=== PATIENT | female | born 1975 | race Caucasian/White ===

== ENCOUNTER 2016-11-17 09:00 | Day surgery (SDC) | payer OTHER ==
[2016-11-17] MEDS ORDERED: IRON SUCROSE INJECTION 200 MG in SODIUM CHLORIDE 100 ML IVPB ONE (09:30)
[2016-11-17 09:58] VITALS: BP 111/71; PULSE 65; TEMP 98.1; BMI 25.5
[2016-11-17 11:22] LABS: MCH 22.2 pg (25.7-33.7); MCHC 31.6 g/dl (32.0-36.0); MEAN CELL VOLUME 70.1 fl (80-96); MEAN PLT VOLUME 10.6 fl (7.5-11.1); PLATELET COUNT 265 K/MM3 (134-434); WHITE BLOOD COUNT 6.5 K/mm3 (4.0-10.0)
== END 2016-11-17 11:30 | disposition home or self-care (01) ==
LOC: FINFUSION 09:00 → FM/S 09:04 → FINFUSION 11:30
PROVIDERS: ATTEND Internal Medicine Hematology & Oncology
PROC: 3E033GC Introduction of Other Therapeutic Substance into Peripheral Vein, Percutaneous Approach (ICD-10-PCS; principal; 2016-11-17)
DX: D64.9 Anemia, unspecified (principal)
CPT/HCPCS: 36415; 85027; 96365; J1756

== ENCOUNTER 2016-11-24 08:36 | Day surgery (SDC) | payer OTHER ==
[2016-11-24] MEDS ORDERED: IRON SUCROSE INJECTION 200 MG in SODIUM CHLORIDE 100 ML IVPB ONE (09:15)
[2016-11-24 18:51] VITALS: BP 130/75; PULSE 84
== END 2016-11-24 11:30 | disposition home or self-care (01) ==
LOC: FINFUSION 08:36 → FM/S 08:39 → FINFUSION 11:30
PROVIDERS: ATTEND Internal Medicine Hematology & Oncology
PROC: 3E033GC Introduction of Other Therapeutic Substance into Peripheral Vein, Percutaneous Approach (ICD-10-PCS; principal; 2016-11-24)
DX: D50.9 Iron deficiency anemia, unspecified (principal)
CPT/HCPCS: 96365; J1756

== ENCOUNTER 2016-12-01 08:03 | Day surgery (SDC) | payer OTHER ==
[2016-12-01] MEDS ORDERED: IRON SUCROSE INJECTION 200 MG in SODIUM CHLORIDE 100 ML IVPB ONE (08:45)
[2016-12-01 10:29] VITALS: BP 92/69; PULSE 66; TEMP 98
== END 2016-12-01 11:00 | disposition home or self-care (01) ==
LOC: FINFUSION 08:03 → FM/S 08:08 → FINFUSION 11:00
PROVIDERS: ATTEND Internal Medicine Hematology & Oncology
PROC: 3E033GC Introduction of Other Therapeutic Substance into Peripheral Vein, Percutaneous Approach (ICD-10-PCS; principal; 2016-12-01)
DX: D64.9 Anemia, unspecified (principal)
CPT/HCPCS: 96365

== ENCOUNTER 2016-12-08 11:11 | Day surgery (SDC) | payer OTHER ==
[2016-12-08] MEDS ORDERED: IRON SUCROSE INJECTION 200 MG in SODIUM CHLORIDE 100 ML IVPB ONE (11:30)
[2016-12-08 11:45] VITALS: TEMP 98.1; BMI 25.7
[2016-12-08 12:07] VITALS: BP 120/62; PULSE 76
== END 2016-12-08 12:08 | disposition home or self-care (01) ==
LOC: FINFUSION 11:11 → FM/S 11:14 → FINFUSION 12:08
PROVIDERS: ATTEND Internal Medicine Hematology & Oncology
PROC: 3E033GC Introduction of Other Therapeutic Substance into Peripheral Vein, Percutaneous Approach (ICD-10-PCS; principal; 2016-12-08)
DX: D64.9 Anemia, unspecified (principal)
CPT/HCPCS: 96365; J1756

== ENCOUNTER 2017-05-18 08:21 | Day surgery (SDC) | payer OTHER ==
[2017-05-18] MEDS ORDERED: IRON SUCROSE INJECTION 200 MG in SODIUM CHLORIDE 100 ML IVPB ONE (08:45)
[2017-05-18 10:16] VITALS: BP 123/70; PULSE 73; TEMP 99.3
== END 2017-05-18 10:10 | disposition home or self-care (01) ==
LOC: FINFUSION 08:21 → FM/S 08:23 → FINFUSION 10:10
PROVIDERS: ATTEND Internal Medicine Hematology & Oncology
PROC: 3E033GC Introduction of Other Therapeutic Substance into Peripheral Vein, Percutaneous Approach (ICD-10-PCS; principal; 2017-05-18)
DX: D50.9 Iron deficiency anemia, unspecified (principal)
CPT/HCPCS: 96365; J1756

== ENCOUNTER 2017-05-25 08:16 | Day surgery (SDC) | payer OTHER ==
[2017-05-25] MEDS ORDERED: IRON SUCROSE INJECTION 200 MG in SODIUM CHLORIDE 100 ML IVPB ONE (08:45)
[2017-05-25 10:11] VITALS: BP 102/64; PULSE 68; TEMP 98.6
== END 2017-05-25 10:11 | disposition home or self-care (01) ==
LOC: FINFUSION 08:16 → FM/S 08:17 → FINFUSION 10:11
PROVIDERS: ATTEND Internal Medicine Hematology & Oncology
PROC: 3E033GC Introduction of Other Therapeutic Substance into Peripheral Vein, Percutaneous Approach (ICD-10-PCS; principal; 2017-05-25)
DX: D50.9 Iron deficiency anemia, unspecified (principal)
CPT/HCPCS: 96365; J1756

== ENCOUNTER 2017-06-08 08:55 | Day surgery (SDC) | payer OTHER ==
[2017-06-08] MEDS ORDERED: IRON SUCROSE INJECTION 200 MG in SODIUM CHLORIDE 100 ML IVPB ONE (09:15)
[2017-06-08 10:47] VITALS: BP 108/74; PULSE 65; TEMP 98
== END 2017-06-08 10:47 | disposition home or self-care (01) ==
LOC: FASU 08:55 → FINFUSION 08:55 → FM/S 08:55 → FASU 10:47
PROVIDERS: ATTEND Internal Medicine Hematology & Oncology
PROC: 3E033GC Introduction of Other Therapeutic Substance into Peripheral Vein, Percutaneous Approach (ICD-10-PCS; principal; 2017-06-08)
DX: D50.9 Iron deficiency anemia, unspecified (principal)
CPT/HCPCS: 96360; 96365; J1756

== ENCOUNTER 2017-06-15 08:37 | Day surgery (SDC) | payer OTHER ==
[2017-06-15] MEDS ORDERED: IRON SUCROSE INJECTION 200 MG in SODIUM CHLORIDE 100 ML IVPB ONE (09:00)
[2017-06-15 10:33] VITALS: BP 110/65; PULSE 65; TEMP 98.4
== END 2017-06-15 10:00 | disposition home or self-care (01) ==
LOC: FINFUSION 08:37 → FM/S 08:41 → FINFUSION 10:00
PROVIDERS: ATTEND Internal Medicine Hematology & Oncology
PROC: 3E033GC Introduction of Other Therapeutic Substance into Peripheral Vein, Percutaneous Approach (ICD-10-PCS; principal; 2017-06-15)
DX: D50.9 Iron deficiency anemia, unspecified (principal)
CPT/HCPCS: 96365; J1756

== ENCOUNTER 2017-06-22 08:24 | Day surgery (SDC) | payer OTHER ==
[2017-06-22] MEDS ORDERED: IRON SUCROSE INJECTION 200 MG in SODIUM CHLORIDE 100 ML IVPB ONE (09:00)
[2017-06-22 09:08] VITALS: TEMP 97.8
[2017-06-22 09:39] LABS: MCH 26.6 pg (25.7-33.7); MCHC 32.6 g/dl (32.0-36.0); MEAN CELL VOLUME 81.6 fl (80-96); MEAN PLT VOLUME 9.8 fl (7.5-11.1); PLATELET COUNT 204 K/MM3 (134-434); RDW 16.2 % (11.6-15.6); WHITE BLOOD COUNT 7.6 K/mm3 (4.0-10.8)
[2017-06-22 09:52] LABS: ALBUMIN 4.3 g/dl (3.5-5.0); ALK PHOS 39 U/L (32-92); ANION GAP 9 (8-16); BILIRUBIN,TOTAL 0.6 mg/dl (0.2-1.0); CALCIUM 9.1 mg/dl (8.4-10.2); CO2 21 mmol/L (22-28); CREATININE 0.6 mg/dl (0.6-1.3); GLUCOSE,RANDOM 86 mg/dl (74-106); SGOT/AST 15 U/L (10-42); SGPT/ALT 12 U/L (10-40); TOT PROT 6.7 g/dl (6.4-8.3)
[2017-06-22 09:58] VITALS: BP 106/58; PULSE 68
[2017-06-22 10:13] LABS: BILIRUBIN,DIRECT 0.2 mg/dl (0.0-0.2)
== END 2017-06-22 10:10 | disposition home or self-care (01) ==
LOC: FINFUSION 08:24 → FM/S 08:26 → FINFUSION 10:10
PROVIDERS: ATTEND Internal Medicine Hematology & Oncology
PROC: 3E033GC Introduction of Other Therapeutic Substance into Peripheral Vein, Percutaneous Approach (ICD-10-PCS; principal; 2017-06-22)
DX: D50.9 Iron deficiency anemia, unspecified (principal)
CPT/HCPCS: 36415; 80048; 80076; 82728; 85027; 96365; J1756

== ENCOUNTER 2017-11-02 08:37 | Day surgery (SDC) | payer OTHER ==
[2017-11-02] MEDS ORDERED: IRON SUCROSE INJECTION 200 MG in SODIUM CHLORIDE 100 ML IVPB ONE (09:00)
[2017-11-02 09:04] VITALS: BP 120/59; PULSE 71; TEMP 98.8; BMI 24.7
[2017-11-02] MEDS ORDERED: CYANOCOBALAMIN (VITAMIN B-12) 1000 MCG/1 ML VIAL IM SCH (09:30)
== END 2017-11-02 11:30 | disposition home or self-care (01) ==
LOC: FINFUSION 08:37 → FM/S 08:44 → FINFUSION 11:30
PROVIDERS: ATTEND Internal Medicine Hematology & Oncology
PROC: 3E033GC Introduction of Other Therapeutic Substance into Peripheral Vein, Percutaneous Approach (ICD-10-PCS; principal; 2017-11-02)
DX: D50.9 Iron deficiency anemia, unspecified (principal)
CPT/HCPCS: 96365; J1756

== ENCOUNTER 2017-12-21 08:29 | Day surgery (SDC) | payer OTHER ==
[2017-12-21] MEDS ORDERED: IRON SUCROSE INJECTION 200 MG in SODIUM CHLORIDE 100 ML IVPB ONE (08:45)
[2017-12-21] MEDS ORDERED: CYANOCOBALAMIN (VITAMIN B-12) 1000 MCG/1 ML VIAL IM SCH (09:00)
[2017-12-21 09:19] VITALS: TEMP 97.9
[2017-12-21 09:53] VITALS: BP 108/58; PULSE 61
== END 2017-12-21 09:59 | disposition home or self-care (01) ==
LOC: FINFUSION 08:29 → FM/S 08:32 → FINFUSION 09:59
PROVIDERS: ATTEND Internal Medicine Hematology & Oncology
PROC: 3E033GC Introduction of Other Therapeutic Substance into Peripheral Vein, Percutaneous Approach (ICD-10-PCS; principal; 2017-12-21)
PROC: 3E023GC Introduction of Other Therapeutic Substance into Muscle, Percutaneous Approach (ICD-10-PCS; 2017-12-21)
DX: D50.9 Iron deficiency anemia, unspecified (principal)
CPT/HCPCS: 96365; 96372; J1756

== ENCOUNTER 2017-12-28 08:23 | Day surgery (SDC) | payer OTHER ==
[2017-12-28] MEDS ORDERED: IRON SUCROSE INJECTION 200 MG in SODIUM CHLORIDE 100 ML IVPB ONE (09:15)
[2017-12-28 09:38] VITALS: BP 96/48; PULSE 63; TEMP 98.4
[2017-12-28] MEDS ORDERED: CYANOCOBALAMIN (VITAMIN B-12) 1000 MCG/1 ML VIAL IM SCH (10:00)
== END 2017-12-28 11:25 | disposition home or self-care (01) ==
LOC: FINFUSION 08:23 → FM/S 08:43 → FINFUSION 11:25
PROVIDERS: ATTEND Internal Medicine Hematology & Oncology
PROC: 3E033GC Introduction of Other Therapeutic Substance into Peripheral Vein, Percutaneous Approach (ICD-10-PCS; principal; 2017-12-28)
PROC: 3E013GC Introduction of Other Therapeutic Substance into Subcutaneous Tissue, Percutaneous Approach (ICD-10-PCS; 2017-12-28)
DX: D64.9 Anemia, unspecified (principal)
CPT/HCPCS: 96365; 96372; J1756

== ENCOUNTER 2018-01-04 10:09 | Day surgery (SDC) | payer OTHER ==
[2018-01-04] MEDS ORDERED: IRON SUCROSE INJECTION 200 MG in SODIUM CHLORIDE 100 ML IVPB ONE (10:30)
[2018-01-04] MEDS ORDERED: CYANOCOBALAMIN (VITAMIN B-12) 1000 MCG/1 ML VIAL IM SCH (10:45)
[2018-01-04 12:09] VITALS: BP 110/72; PULSE 62; TEMP 98.5
== END 2018-01-04 11:30 | disposition home or self-care (01) ==
LOC: FINFUSION 10:09 → FM/S 10:13 → FINFUSION 11:30
PROVIDERS: ATTEND Internal Medicine Hematology & Oncology
PROC: 3E033GC Introduction of Other Therapeutic Substance into Peripheral Vein, Percutaneous Approach (ICD-10-PCS; principal; 2018-01-04)
PROC: 3E023GC Introduction of Other Therapeutic Substance into Muscle, Percutaneous Approach (ICD-10-PCS; 2018-01-04)
DX: D50.9 Iron deficiency anemia, unspecified (principal)
CPT/HCPCS: 96365; 96372; J1756

== ENCOUNTER 2018-01-11 08:43 | Day surgery (SDC) | payer OTHER ==
[2018-01-11] MEDS ORDERED: IRON SUCROSE INJECTION 200 MG in SODIUM CHLORIDE 100 ML IVPB ONE (09:00)
[2018-01-11] MEDS ORDERED: CYANOCOBALAMIN (VITAMIN B-12) 1000 MCG/1 ML VIAL IM SCH (09:15)
[2018-01-11 09:25] VITALS: BP 106/68; PULSE 68; TEMP 98.5
== END 2018-01-11 10:00 | disposition home or self-care (01) ==
LOC: FINFUSION 08:43 → FM/S 08:46 → FINFUSION 10:00
PROVIDERS: ATTEND Internal Medicine Hematology & Oncology
PROC: 3E033GC Introduction of Other Therapeutic Substance into Peripheral Vein, Percutaneous Approach (ICD-10-PCS; principal; 2018-01-11)
PROC: 3E013GC Introduction of Other Therapeutic Substance into Subcutaneous Tissue, Percutaneous Approach (ICD-10-PCS; 2018-01-11)
DX: D50.9 Iron deficiency anemia, unspecified (principal)
CPT/HCPCS: 96365; 96372; J1756

== ENCOUNTER 2018-01-18 08:57 | Day surgery (SDC) | payer OTHER ==
[2018-01-18] MEDS ORDERED: IRON SUCROSE INJECTION 200 MG in SODIUM CHLORIDE 100 ML IVPB ONE (09:15)
[2018-01-18] MEDS ORDERED: CYANOCOBALAMIN (VITAMIN B-12) 1000 MCG/1 ML VIAL IM SCH (09:30)
[2018-01-18 09:33] VITALS: TEMP 98.5
[2018-01-18 10:14] VITALS: BP 122/74; PULSE 64
== END 2018-01-18 10:10 | disposition home or self-care (01) ==
LOC: FINFUSION 08:57 → FM/S 09:00 → FINFUSION 10:10
PROVIDERS: ATTEND Internal Medicine Hematology & Oncology
PROC: 3E033GC Introduction of Other Therapeutic Substance into Peripheral Vein, Percutaneous Approach (ICD-10-PCS; principal; 2018-01-18)
PROC: 3E023GC Introduction of Other Therapeutic Substance into Muscle, Percutaneous Approach (ICD-10-PCS; 2018-01-18)
DX: D50.9 Iron deficiency anemia, unspecified (principal)
CPT/HCPCS: 96365; 96372; J1756

== ENCOUNTER 2018-02-08 09:17 | Day surgery (SDC) | payer OTHER ==
[2018-02-08 09:40] VITALS: TEMP 98.7; BMI 24.9
[2018-02-08] MEDS ORDERED: IRON SUCROSE INJECTION 200 MG in SODIUM CHLORIDE 100 ML IVPB ONE (09:45)
[2018-02-08 10:53] VITALS: BP 109/74; PULSE 58
== END 2018-02-08 10:52 | disposition home or self-care (01) ==
LOC: FINFUSION 09:17 → FM/S 09:23 → FINFUSION 10:52
PROVIDERS: ATTEND Internal Medicine Hematology & Oncology
PROC: 3E033GC Introduction of Other Therapeutic Substance into Peripheral Vein, Percutaneous Approach (ICD-10-PCS; principal; 2018-02-08)
DX: D50.9 Iron deficiency anemia, unspecified (principal)
CPT/HCPCS: 96365; J1756

== ENCOUNTER 2019-01-31 09:08 | Day surgery (SDC) | payer OTHER | END 2019-01-31 11:00 | disposition home or self-care (01) | LOC: FINFUSION 09:08 → FM/S 09:10 → FINFUSION 11:00 | DX: D50.9 Iron deficiency anemia, unspecified (principal) ==

== ENCOUNTER 2019-02-07 09:28 | Day surgery (SDC) | payer OTHER ==
[2019-02-07] MEDS ORDERED: IRON SUCROSE INJECTION 200 MG in SODIUM CHLORIDE 100 ML IVPB ONE (10:15)
[2019-02-07 10:19] VITALS: BP 100/57; PULSE 62; TEMP 98.9
[2019-02-07 12:13] VITALS: BMI 26.7
== END 2019-02-07 11:45 | disposition home or self-care (01) ==
LOC: FINFUSION 09:28 → FM/S 09:31 → FINFUSION 11:45
PROVIDERS: ATTEND Internal Medicine Hematology & Oncology
PROC: 3E033GC Introduction of Other Therapeutic Substance into Peripheral Vein, Percutaneous Approach (ICD-10-PCS; principal; 2019-02-07)
DX: D50.9 Iron deficiency anemia, unspecified (principal)
CPT/HCPCS: 96365; J1756

== ENCOUNTER 2019-02-14 09:11 | Day surgery (SDC) | payer OTHER ==
[2019-02-14] MEDS ORDERED: IRON SUCROSE INJECTION 200 MG in SODIUM CHLORIDE 100 ML IVPB ONE (09:30)
== END 2019-02-14 10:20 | disposition home or self-care (01) ==
LOC: FINFUSION 09:11 → FM/S 09:14 → FINFUSION 10:20
PROVIDERS: ATTEND Internal Medicine Hematology & Oncology
PROC: 3E033GC Introduction of Other Therapeutic Substance into Peripheral Vein, Percutaneous Approach (ICD-10-PCS; principal; 2019-02-14)
DX: D50.9 Iron deficiency anemia, unspecified (principal)
CPT/HCPCS: 96365; J1756

== ENCOUNTER 2019-02-21 08:21 | Day surgery (SDC) | payer OTHER ==
[2019-02-21] MEDS ORDERED: IRON SUCROSE INJECTION 200 MG in SODIUM CHLORIDE 100 ML IVPB ONE (08:30)
[2019-02-21 08:58] VITALS: BP 109/65; PULSE 61; TEMP 97.8; BMI 27.1
== END 2019-02-21 10:00 | disposition home or self-care (01) ==
LOC: FINFUSION 08:21 → FM/S 08:22 → FINFUSION 10:00
PROVIDERS: ATTEND Internal Medicine Hematology & Oncology
PROC: 3E033GC Introduction of Other Therapeutic Substance into Peripheral Vein, Percutaneous Approach (ICD-10-PCS; principal; 2019-02-21)
DX: D50.9 Iron deficiency anemia, unspecified (principal)
CPT/HCPCS: 96365; J1756

== ENCOUNTER 2019-02-28 08:28 | Day surgery (SDC) | payer OTHER ==
[2019-02-28] MEDS ORDERED: IRON SUCROSE INJECTION 200 MG in SODIUM CHLORIDE 100 ML IVPB ONE (09:15)
[2019-02-28 09:39] VITALS: BP 102/55; PULSE 68; TEMP 98.6
== END 2019-02-28 10:30 | disposition home or self-care (01) ==
LOC: FINFUSION 08:28 → FM/S 08:29 → FINFUSION 10:30
PROVIDERS: ATTEND Internal Medicine Hematology & Oncology
DX: D50.9 Iron deficiency anemia, unspecified (principal)
CPT/HCPCS: 96365; J1756

== ENCOUNTER 2019-03-07 10:19 | Day surgery (SDC) | payer OTHER ==
[2019-03-07] MEDS ORDERED: IRON SUCROSE INJECTION 200 MG in SODIUM CHLORIDE 100 ML IVPB ONE (10:45)
[2019-03-07 11:28] VITALS: BP 110/70; PULSE 74; TEMP 98.2; BMI 27.1
== END 2019-03-07 11:30 | disposition home or self-care (01) ==
LOC: FINFUSION 10:19
PROVIDERS: ATTEND Internal Medicine Hematology & Oncology
DX: D50.9 Iron deficiency anemia, unspecified (principal)
CPT/HCPCS: 96365; J1756

== ENCOUNTER 2019-09-26 09:54 | Day surgery (SDC) | payer OTHER ==
[2019-09-26 11:43] VITALS: TEMP 98.2
[2019-09-26 11:45] VITALS: BP 122/70; PULSE 60
[2019-09-26] MEDS ORDERED: IRON SUCROSE INJECTION 200 MG/100 ML BAG IVPB ONE (11:45)
== END 2019-09-26 11:47 | disposition home or self-care (01) ==
LOC: MERGE 09:54 → FINFUSION 09:54 → FM/S 09:59 → FINFUSION 11:47
PROVIDERS: ATTEND Internal Medicine Hematology & Oncology
PROC: 3E033GC Introduction of Other Therapeutic Substance into Peripheral Vein, Percutaneous Approach (ICD-10-PCS; principal; 2019-09-26)
DX: D50.9 Iron deficiency anemia, unspecified (principal)
CPT/HCPCS: 96365; J1756

== ENCOUNTER 2019-10-03 10:14 | Day surgery (SDC) | payer OTHER ==
[2019-10-03] MEDS ORDERED: IRON SUCROSE INJECTION 200 MG/100 ML BAG IVPB ONE (10:30)
[2019-10-03 10:48] VITALS: TEMP 98.6
[2019-10-03 11:29] VITALS: BP 110/60; PULSE 80
== END 2019-10-03 11:29 | disposition home or self-care (01) ==
LOC: FINFUSION 10:14 → FM/S 10:15 → FINFUSION 11:29 → MERGE 15:40
PROVIDERS: ATTEND Internal Medicine Hematology & Oncology
PROC: 3E033GC Introduction of Other Therapeutic Substance into Peripheral Vein, Percutaneous Approach (ICD-10-PCS; principal; 2019-10-03)
DX: D50.9 Iron deficiency anemia, unspecified (principal)
CPT/HCPCS: 96365; J1756

== ENCOUNTER 2019-10-10 11:35 | Day surgery (SDC) | payer OTHER ==
[2019-10-10] MEDS ORDERED: IRON SUCROSE INJECTION 200 MG/100 ML BAG IVPB ONE (12:15)
[2019-10-10 12:32] VITALS: BP 125/56; PULSE 82; TEMP 98.6
== END 2019-10-10 12:33 | disposition home or self-care (01) ==
LOC: FINFUSION 11:35 → FM/S 11:37 → FINFUSION 12:33 → MERGE 15:51
PROVIDERS: ATTEND Internal Medicine Hematology & Oncology
PROC: 3E033GC Introduction of Other Therapeutic Substance into Peripheral Vein, Percutaneous Approach (ICD-10-PCS; principal; 2019-10-10)
DX: D50.9 Iron deficiency anemia, unspecified (principal)
CPT/HCPCS: 96365; J1756

== ENCOUNTER 2019-10-24 12:20 | Day surgery (SDC) | payer OTHER ==
[2019-10-24] MEDS ORDERED: IRON SUCROSE INJECTION 200 MG/100 ML BAG IVPB ONE (12:45)
[2019-10-24 13:33] VITALS: BP 104/63; PULSE 68; TEMP 98.2; BMI 27.4
== END 2019-10-24 14:31 | disposition home or self-care (01) ==
LOC: FINFUSION 12:20 → FM/S 12:30 → FINFUSION 14:31
PROVIDERS: ATTEND Internal Medicine Hematology & Oncology
PROC: 3E033GC Introduction of Other Therapeutic Substance into Peripheral Vein, Percutaneous Approach (ICD-10-PCS; principal; 2019-10-24)
DX: D50.9 Iron deficiency anemia, unspecified (principal)
CPT/HCPCS: 96365; J1756